=== PATIENT | female | born 1995 | race Caucasian/White ===

== ENCOUNTER 2022-10-02 09:03 | Emergency (ER) | payer OTHER, SELFPAY ==
[2022-10-02 09:21] VITALS: BP 110/69; PULSE 110; RESP 18; TEMP 36.9; O2SAT 98; BMI 24.1
--- NOTE | 2022-10-02 09:31 | CRLHL7_ITS ---
For Patients: As a result of the Century Cures Act, medical imaging exams and procedure reports are released immediately into your electronic medical record. You may view this report before your referring provider. If you have questions, please contact your health care provider. INDICATION: Syncope TECHNIQUE: CT head without contrast. COMPARISON: None. FINDINGS: CSF spaces: Within normal limits for age. Brain parenchyma: The singer-white differentiation is normal. No sign of mass, hemorrhage, or midline shift. Skull base and calvarium: Mucous retention cyst right maxillary sinus. The visualized orbits are grossly unremarkable. No skull fractures. IMPRESSION: Unremarkable noncontrast head CT. Please note that all CT scans at this facility use dose modulation, iterative reconstruction, and/or weight-based dosing when appropriate to reduce radiation dose to as low as reasonably achievable. Dictated by Duane Araiza MD @ 10/02/2022 11:44:38 AM (Electronically Signed)
--- NOTE | 2022-10-02 09:33 | ED.NAVMDI ---
HPI - Nausea/Vomiting/Diarrhea General Chief complaint: Diarrhea Stated complaint: fainting Time Seen by Provider: 10/02/22 09:28 History of Present Illness HPI Narrative: Pt is a 26 year old woman who states that she is not who presents with 2 days of nonbloody diarrhea. Pt has not eating during that time. Pt states that she passed out this morning. She really did not fall and does not believe that she hit her head. She has only minimal nausea and no vomiting. Pt has chronic anxiety and feels that this illness is making the anxiety worse. She has no overt chest pain but states that her anxiety is causing her chest to feel full. She also complains of tingling of her cheeks and upper extremities. Related Data Home Medications Medication Instructions Recorded Confirmed escitalopram oxalate 20 mg tablet 10 mg PO DAILY 10/02/22 10/02/22 (Lexapro) Allergies Allergy/AdvReac Type Severity Reaction Status Date / Time No Known Drug Allergies Allergy Verified 10/02/22 09:23 Review of Systems Status of ROS: Reports: 10 or more systems reviewed and unremarkable except as noted in History and below [facility] Medical History (Updated 10/02/22 @ 12:00 by Timmy Sheehan MD) Anxiety Social History Smoking Status: Never smoker How often do you have a drink containing alcohol: never AUDIT-C Alcohol total score: 0 Non-prescribed substance use: denies use Exam Narrative: Exam Narrative: EXAM GENERAL: Patient appears anxious. EYES: No scleral icterus. THYROID: no thyroid nodules or thyromegaly. LYMPH: No supraclavicular or cervical lymphadenopathy. SKIN: Visible skin seen during exam normal or with benign process only. EXT: No dependent lower extremity pedal edema. HEART: Regular rate and rhythm with no murmurs, rubs, or gallops. LUNGS: Clear to auscultation bilaterally with no crackles or wheezes. ABD: Soft, non tender, non distended. PSYCH: Good eye contact, speech is not pressured. Const: Vital Signs, click to edit/add: Vital Signs - 24 hr 10/02/22 09:21 10/02/22 11:41 Temperature 98.5 F Pulse Rate [Right Pulse Oximeter] 110 H 90 Respiratory Rate 18 18 Blood Pressure [Ri ght Upper Arm] 110/69 117/72 Pulse Oximetry 98 98 Oxygen Delivery Me thod Room Air Room Air Course Course Hospital Course: Pt seen and examined. CT of head, D dimer, cmp, urinalysis ,cbc, serum preg, collected. Normal saline and IV Zofran given. Reevaluation(s) Reevaluation #1: Pt feeling better. Does not want to stay for the second liter of saline. Feels ready to go home. Time: 11:57 Vital Signs Vital signs: Initial Vital Signs Temperature 98.5 F 10/02/22 09:21 Temperature Source Temporal Artery Scan 10/02/22 09:21 Pulse Rate 110 H 10/02/22 09:21 Respiratory Rate 18 10/02/22 09:21 Blood Pressure 110/69 10/02/22 09:21 Blood Pressure Mean 82 10/02/22 09:21 Blood Pressure Position Sitting 10/02/22 09:21 Pulse Oximetry 98 10/02/22 09:21 Oxygen Delivery Method 10/02/22 09:21 Vital Signs Temperature 98.5 F 10/02/22 09:21 Pulse Rate 110 H 10/02/22 09:21 Respiratory Rate 18 10/02/22 09:21 Blood Pressure 110/69 10/02/22 09:21 Pulse Oximetry 98 10/02/22 09:21 Oxygen Delivery Method 10/02/22 09:21 Temperature 98.5 F 10/02/22 09:21 Pulse Rate 90 10/02/22 11:41 Respiratory Rate 18 10/02/22 11:41 Blood Pressure 117/72 10/02/22 11:41 Pulse Oximetry 98 10/02/22 11:41 Oxygen Delivery Method 10/02/22 11:41 MDM - Nausea/Vomiting/Diarrhea MDM Narrative Medical decision making narrative: Pt presents with 2 days of diarrhea and anorexia. Pt's labs stable. Pt had a syncopal event at home. CT of the head negative for acute changes. Pt given zofran and saline and now feels ready to go home to advance her diet and activity as tolerated. Differential Diagnosis Differential diagnosis: Likely traveler's diarrhea, food poisoning, gastroenteritis, clostridium difficile infection, drug-induced nausea and vomiting and dehydration Lab Data Labs: Lab Results 10/02/22 10/02/22 10/02/22 Range/Units 09:31 09:56 09:56 WBC 9.06 (4.50-11.00) K/uL RBC 5.03 (4.00-5.20) m/uL Hgb 14.4 (12.0-16.0) gm/dL Hct 42.3 (33.0-51.0) % MCV 84 (80-100) fL MCH 29 (26-34) pg MCHC 34 (32-36) gm/dL RDW Coeff of Dillon 12.6 (11.5-15.5) % Plt Count 343 (140-440) K/uL Neut % (Auto) 86.6 H (42.0-72.0) % Lymph % (Auto) 8.8 L (20-44) % Crawford % (Auto) 4.5 (0.0-11.0) % Eos % (Auto) 0.0 (0.0-7.0) % Baso % (Auto) 0.0 (0.0-3.0) % Neut # (Auto) 7.80 H (1.7-7.0) K/uL Lymph # (Auto) 0.80 L (0.90-2.90) K/uL Crawford # (Auto) 0.40 (0.00-0.90) K/UL Eos # (Auto) 0.00 (0.00-0.50) K/uL Baso # (Auto) 0.00 (0.00-0.30) K/uL D-Dimer Quant (PE/DVT) (0.00-0.50) ug/ml Sodium 138 (135-149) mmol/L Potassium 3.8 (3.6-5.1) mmol/L Chloride 107 (96-114) mmol/L Carbon Dioxide 20 (20-32) mmol/L BUN 6 (5-24) mg/dL Creatinine 0.5 (0.5-1.5) mg/dL Estimated Creat Clear 156.12 Estimated GFR 134 ml/min Glucose 125 H (60-115) mg/dL Calcium 9.2 (8.4-10.6) mg/dL Total Bilirubin 0.7 (0.1-1.5) mg/dL AST 24 (12-35) U/L ALT 21 (4-35) U/L Alkaline Phosphatase 68 (40-150) U/L Total Protein 8.1 (6.0-8.3) g/dL Albumin 4.9 (3.3-5.0) g/dL Amylase 76 (18-89) U/L HCG, Qual (Negative) Urine Color Yellow (Yellow) Urine Appearance Clear (Clear) Urine pH 6.0 (5.0-8.5) Ur Specific Villard <= 1.005 (1.000-1.030) Urine Protein Negative (Negative) Urine Glucose (UA) Negative (Negative) Urine Ketones 3+ A (Negative) Urine Blood Trace-intact A (Negative) Urine Nitrite Negative (Negative) Urine Bilirubin Negative (Negative) Urine Urobilinogen 0.2 (0.2-1.0) Ur Leukocyte Esterase Trace A (Negative) Urine RBC 0-2 (0-2) Urine WBC 10-25 A (0-5) Ur Squamous Epith Cells Many A (None-Few) Urine Bacteria Moderate A (None) 10/02/22 10/02/22 Range/Units 09:56 09:56 WBC (4.50-11.00) K/uL RBC (4.00-5.20) m/uL Hgb (12.0-16.0) gm/dL Hct (33.0-51.0) % MCV (80-100) fL MCH (26-34) pg MCHC (32-36) gm/dL RDW Coeff of Dillon (11.5-15.5) % Plt Count (140-440) K/uL Neut % (Auto) (42.0-72.0) % Lymph % (Auto) (20-44) % Crawford % (Auto) (0.0-11.0) % Eos % (Auto) (0.0-7.0) % Baso % (Auto) (0.0-3.0) % Neut # (Auto) (1.7-7.0) K/uL Lymph # (Auto) (0.90-2.90) K/uL Crawford # (Auto) (0.00-0.90) K/UL Eos # (Auto) (0.00-0.50) K/uL Baso # (Auto) (0.00-0.30) K/uL D-Dimer Quant (PE/DVT) < 0.27 (0.00-0.50) ug/ml Sodium (135-149) mmol/L Potassium (3.6-5.1) mmol/L Chloride (96-114) mmol/L Carbon Dioxide (20-32) mmol/L BUN (5-24) mg/dL Creatinine (0.5-1.5) mg/dL Estimated Creat Clear Estimated GFR ml/min Glucose (60-115) mg/dL Calcium (8.4-10.6) mg/dL Total Bilirubin (0.1-1.5) mg/dL AST (12-35) U/L ALT (4-35) U/L Alkaline Phosphatase (40-150) U/L Total Protein (6.0-8.3) g/dL Albumin (3.3-5.0) g/dL Amylase (18-89) U/L HCG, Qual Negative (Negative) Urine Color (Yellow) Urine Appearance (Clear) Urine pH (5.0-8.5) Ur Specific Vill[place] (1.000-1.030) Urine Protein (Negative) Urine Glucose (UA) (Negative) Urine Ketones (Negative) Urine Blood (Negative) Urine Nitrite (Negative) Urine Bilirubin (Negative) Urine Urobilinogen (0.2-1.0) Ur Leukocyte Esterase (Negative) Urine RBC (0-2) Urine WBC (0-5) Ur Squamous Epith Cells (None-Few) Urine Bacteria (None) Discharge Plan Discharge Clinical Impression: Gastroenteritis Patient Disposition: Home, Self-Care Condition: Stable Instructions: Acute Diarrhea (ED) Activity Level: No Restrictions Discharge Diet: Regular Prescriptions: No Action escitalopram oxalate [Lexapro] 20 mg tablet 10 mg PO DAILY Follow Up/Referrals: Provider,Not a Local [Primary Care Provider] - Stand Alone Forms: MyHealth Info Instructions
[2022-10-02 10:06] LABS: Appearance Urine Clear (Clear); Bilirubin Urine Negative (Negative); Blood Urine Trace-intact (Negative); Color Urine Yellow (Yellow); Glucose Urine Negative (Negative); Ketones Urine 3+ (Negative); Leukocyte Esterase Urine Trace (Negative); Nitrite Urine Negative (Negative); Protein Urine Negative (Negative); Specific Gravity Urine <= 1.005 (1.000-1.030); Urobilinogen Urine 0.2 (0.2-1.0)
[2022-10-02 10:17] LABS: Bacteria Urine Moderate; RBC Urine 0-2 (0-2); Squamous Epithelial Cell Urine Many (None-Few)
[2022-10-02 10:20] LABS: Albumin* 4.9 g/dL (3.3-5.0)
[2022-10-02 10:21] LABS: Chloride* 107 mmol/L (96-114); Potassium* 3.8 mmol/L (3.6-5.1); Sodium* 138 mmol/L (135-149)
[2022-10-02 10:22] LABS: HCG Qualitative Serum* Negative (Negative); Hematocrit 42.3 % (33.0-51.0); Hemoglobin* 14.4 gm/dL (12.0-16.0); Immature Granulocytes Abs Auto 0.01 K/uL (0.00-0.30); Immature Granulocytes Pct Auto 0.1 %; Lymphocytes Percent Auto 8.8 % (20-44); Mean Corpuscular HGB Conc 34 gm/dL (32-36); Mean Corpuscular Hemoglobin 29 pg (26-34); Mean Corpuscular Volume 84 fL (80-100); Monocytes Percent Auto 4.5 % (0.0-11.0); Neutrophils Percent Auto 86.6 % (42.0-72.0); Platelet Count* 343 K/uL (140-440); RDW Coefficient of Variation % 12.6 % (11.5-15.5); Red Blood Count 5.03 m/uL (4.00-5.20); White Blood Count* 9.06 K/uL (4.50-11.00)
[2022-10-02 10:23] LABS: Amylase* 76 U/L (18-89); Bilirubin Total* 0.7 mg/dL (0.1-1.5); Carbon Dioxide* 20 mmol/L (20-32); Creatinine* 0.5 mg/dL (0.5-1.5); Est. Creatinine Clearance* 156.12; Estimated Glomerular Filt Rate 134 ml/min; Slide Review Reflex No
[2022-10-02 10:24] LABS: Alanine Aminotransferase* 21 U/L (4-35); Alkaline Phosphatase* 68 U/L (40-150); Aspartate Amino Transferase* 24 U/L (12-35); Blood Urea Nitrogen* 6 mg/dL (5-24); Calcium* 9.2 mg/dL (8.4-10.6); D Dimer Quantitative* < 0.27 ug/ml (0.00-0.50); Glucose* 125 mg/dL (60-115); Total Protein* 8.1 g/dL (6.0-8.3)
[2022-10-02] MEDS: 0.9 % SODIUM CHLORIDE 1000 ml 1,000 ML IV ×2 (10:30→11:27)
[2022-10-02 11:41] VITALS: BP 117/72; PULSE 90; RESP 18; O2SAT 98
== END 2022-10-02 12:12 | disposition home or self-care (01) ==
PROVIDERS: Emergency Provider Internal Medicine
DX: K52.9 Noninfective gastroenteritis and colitis, unspecified (principal)
CPT/HCPCS: 36415; 70450; 80053; 81003; 81015; 82150; 84703; 85025; 85379; 87086; 93005; 96361; 96374; 99283; 99284; 99285; J7030